=== PATIENT | female | born 1955 | race American Indian/Alaskan Native ===

== ENCOUNTER 2016-08-30 09:59 | Outpatient (CLI) | payer OTHER ==
--- NOTE | 2016-08-30 14:43 | Mammography Report ---
BILATERAL DIGITAL SCREENING MAMMOGRAM with CAD: 08/30/16 09:59:00 CLINICAL: Routine screening. COMPARISON:None available. FINDINGS: The breasts are heterogeneously dense, which may obscure small masses. No mass, architectural distortion or suspicious calcifications. IMPRESSION: No mammographic evidence of malignancy. BI-RADS CATEGORY: 1 - - Negative RECOMMENDATION: Routine mammographic screening in one year. COMMENT: Patient follow-up letters are generated by our [employer] application.
== END 2016-08-30 10:00 | disposition home or self-care (01) ==
LOC: SPVWC 09:59
PROVIDERS: ATTEND Internal Medicine
DX: Z12.31 Encounter for screening mammogram for malignant neoplasm of breast (principal)
CPT/HCPCS: 77067; G0202

== ENCOUNTER 2016-11-17 09:41 | Outpatient (CLI) | payer OTHER ==
--- NOTE | 2016-11-17 11:29 | XRay Report ---
CHEST 2 VIEWS INDICATION: Abnormal weight loss. COMPARISON: None similar. FINDINGS: PA and lateral chest radiographs demonstrate top normal heart size. Mild aortic knob calcifications possible. Subtle 9 mm left upper lobe nodule not excluded. Otherwise clear lungs without pleural effusions or CHF. Intact bones. CONCLUSION: Questionable left upper lobe nodule, as described. Please also correlate clinically, with prior chest imaging if available or further with chest CT, as warranted. Thank you for the opportunity to participate in this patient's care.
== END 2016-11-17 09:42 | disposition home or self-care (01) ==
LOC: SPVIMAG 09:41
PROVIDERS: ATTEND Internal Medicine
DX: R63.4 Abnormal weight loss (principal); I70.0 Atherosclerosis of aorta
CPT/HCPCS: 71020

== ENCOUNTER 2017-02-27 11:50 | Outpatient (CLI) | payer OTHER ==
[2017-02-27 12:37] LABS: Blood Urea Nitrogen 17 mg/dL (7-17)
--- NOTE | 2017-02-27 15:36 | Cat Scan Report ---
CT CHEST WITH CONTRAST: 02/27/17 11:50:00 CLINICAL: Acute upper respiratory infection. Comparison: None. TECHNIQUE: Volumetric acquisition and 1.25 mm scan reconstructions after the uneventful intravenous injection of 100cc Omnipaque 300. Consent was obtained prior to the administration of contrast. FINDINGS: Moderate emphysema with scattered bilateral multilobar predominantly upper lobe small bullae, multifocal bronchiectasis and pulmonary scars.A 1 cm noncalcified left upper lobe pulmonary nodule and no other pulmonary nodule or mass. No hilar lymph node enlargement. A prominent retrocaval pretracheal lymph node measures 1.4 x 0.9 cm. A few smaller mediastinal lymph nodes. Normal heart and aorta. No pleural effusion. Normal thyroid, trachea and esophagus. No axillary or supraclavicular lymphadenopathy. The upper abdomen is unremarkable. Bone windows demonstrate a diffuse sclerosis of the L1 vertebral body along with mixed lucency within the background of sclerosis. IMPRESSION: 1. A 1 cm noncalcified left upper lobe lung nodule. It probably is amenable to CT-guided percutaneous biopsy. 2. Moderate emphysema and bronchiectasis. 3. Abnormal L1 vertebral body. Recommend further evaluation with plain x-rays and consider a nuclear medicine bone scan. 4. No pneumonia.
== END 2017-02-27 11:51 | disposition home or self-care (01) ==
LOC: CT 11:50
PROVIDERS: ATTEND Internal Medicine
DX: J43.9 Emphysema, unspecified (principal); J47.9 Bronchiectasis, uncomplicated; R91.1 Solitary pulmonary nodule; E78.5 Hyperlipidemia, unspecified
CPT/HCPCS: 36415; 71260; 82565; 84520; Q9967

== ENCOUNTER 2017-07-04 15:14 | Outpatient (CLI) | payer OTHER ==
--- NOTE | 2017-07-04 16:29 | XRay Report ---
XRAY RIGHT KNEE 2 VIEWS: 07/04/17 15:14:00 CLINICAL: Right knee pain. FINDINGS: No fracture or dislocation. Mild osteopenia. Mild narrowing of the medial joint space with small osteophytes. Greater narrowing of the lateral joint space with an inferior osteophyte. In addition, eburnation of the lateral tibial plateau and small subchondral geodes. Normal patellofemoral joint. No joint effusion.A few vascular calcifications. IMPRESSION: Osteoarthritis with greater involvement of the lateral joint space.
== END 2017-07-04 15:15 | disposition home or self-care (01) ==
LOC: SPVIMAG 15:14
PROVIDERS: ATTEND Nurse Practitioner Family
DX: M17.11 Unilateral primary osteoarthritis, right knee (principal)

== ENCOUNTER 2017-08-31 12:54 | Outpatient (CLI) | payer OTHER ==
--- NOTE | 2017-09-03 15:38 | Mammography Report ---
BILATERAL DIGITAL SCREENING MAMMOGRAM with CAD: 08/31/17 12:54:00 CLINICAL: Routine screening. COMPARISON:07/04/17 FINDINGS: The breasts are heterogeneously dense, which may obscure small masses. No mass, architectural distortion or suspicious calcifications. IMPRESSION: No mammographic evidence of malignancy. BI-RADS CATEGORY: 1 - - Negative RECOMMENDATION: Routine mammographic screening in one year. COMMENT: Patient follow-up letters are generated by our [employer] application.
== END 2017-08-31 12:55 | disposition home or self-care (01) ==
LOC: SPVWC 12:54
PROVIDERS: ATTEND Nurse Practitioner Family
DX: Z12.31 Encounter for screening mammogram for malignant neoplasm of breast (principal)
CPT/HCPCS: 77067

== ENCOUNTER 2018-09-05 10:00 | Outpatient (CLI) | payer OTHER ==
--- NOTE | 2018-09-06 10:42 | Mammography Report ---
BILATERAL DIGITAL SCREENING MAMMOGRAM with CAD: 09/05/18 10:00:00 CLINICAL: Routine screening. COMPARISON:08/31/17 FINDINGS: The breasts are heterogeneously dense, which may obscure small masses. No mass, architectural distortion or suspicious calcifications. IMPRESSION: No mammographic evidence of malignancy. BI-RADS CATEGORY: 1 - - Negative RECOMMENDATION: Routine mammographic screening in one year. COMMENT: Patient follow-up letters are generated by our [employer] application.
== END 2018-09-05 10:01 | disposition home or self-care (01) ==
LOC: SPVWC 10:00
PROVIDERS: ATTEND Internal Medicine
DX: Z12.31 Encounter for screening mammogram for malignant neoplasm of breast (principal)
CPT/HCPCS: 77067

== ENCOUNTER 2020-02-17 09:42 | Outpatient (CLI) | payer OTHER ==
--- NOTE | 2020-02-17 12:34 | Ultrasound Report ---
ULTRASOUND ABDOMEN, COMPLETE INDICATION / CLINICAL INFORMATION: GENERALIZED ABDOMINAL PAIN R10.84. COMPARISON: None available. FINDINGS: PANCREAS: No significant abnormality. ABDOMINAL AORTA: No significant abnormality. IVC: No significant abnormality. LIVER: No significant abnormality. GALLBLADDER: Gallbladder sludge versus noncalcified gallstones are noted. The gallbladder wall is wit hin normal limits for diameter. No evidence of pericholecystic fluid. BILE DUCTS: No significant abnormality. Common bile duct measures 4 mm. KIDNEYS: Right: Small 5 mm simple renal cyst. No calcified stones or hydronephrosis. Left: 4 mm calc ified pelvicalyceal stone in the upper pole. No hydronephrosis. SPLEEN: No significant abnormality. FREE FLUID: None. ADDITIONAL FINDINGS: None. IMPRESSION: 1. Gallbladder sludge versus noncalcified gallstones. No evidence of acute cholecystitis. 2. 4 mm calcified left upper pole pelvicalyceal stone. No hydronephrosis. Signer Name: Ricardo Webb MD Signed: 02/17/2020 12:30 PM Workstation Name: [id number]
== END 2020-02-17 09:43 | disposition home or self-care (01) ==
LOC: SPVWC 09:42
PROVIDERS: ATTEND Internal Medicine
DX: N20.0 Calculus of kidney (principal)
CPT/HCPCS: 76700